=== PATIENT | female | born 1975 | race Caucasian/White ===

== ENCOUNTER → 2019-07-21 15:25 | Outpatient (CLI) | payer OTHER, SELFPAY ==
--- NOTE | 2019-07-21 15:40 | MRI_ITS ---
STUDY: MRI LEFT WRIST WITHOUT CONTRAST REASON FOR EXAM: Female, 43 years old. Medial LEFT wrist pain with certain movements following twisting,jerking,pulling injury on 06/16/2019 TECHNIQUE: Standardized fat and water weighted pulse sequences were obtained in all 3 orthogonal planes. Motion artifact is present on several sequences. COMPARISON: None. FINDINGS: Normal visualized distal radius and ulna. Normal distal radioulnar Articulation (DRUJ). There is degeneration/increased signal of the ulnar component of the T.F.C., but without a demonstrated full thickness tear. Several small ganglion cysts are present on the ventral surface of the radial scaphoid articulation maximally measuring 9.6 mm in diameter. No bone marrow edema or occult fracture is seen. Normal carpal bones. Normal radiocarpal, intercarpal and midcarpal articulations. Normal pisotriquetral articulation. Normal visualized interosseous scapholunate ligament. Normal visualized dorsal (extrinsic) ligaments. Normal visualized volar (extrinsic) ligaments. The extensor carpi ulnaris tendon is mildly thickened with increased signal within the ulnar groove and surrounded by a small amount of fluid compatible with tenosynovitis. Normal remaining extensor tendons. Normal flexor tendons. Normal carpal tunnel with a normal median nerve. Normal carpometacarpal articulation of the thumb. Normal second through fifth carpometacarpal articulations. Normal visualized metacarpal bones. There is no demonstrated soft tissue abnormality. MRI/Upper Ext Joint Only(Routine) IMPRESSION: 1. The extensor carpi ulnaris tendon is mildly thickened with increased signal within the ulnar groove and surrounded by a small amount of fluid compatible with tenosynovitis. 2. There is degeneration/increased signal of the ulnar component of the T.F.C., but without a demonstrated full thickness tear. 3. Several small ganglion cysts are present on the ventral surface of the radial scaphoid articulation maximally measuring 9.6 mm in diameter. Electronically Signed: Sixto Erickson MD at 20:00 EDT , Service support ,
== END ==
PROVIDERS: PCP Internal Medicine; Visit Provider Family Medicine
DX: S63.502A Unspecified sprain of left wrist, initial encounter (principal)
CPT/HCPCS: 73221